=== PATIENT | female | born 1990 | race American Indian/Alaskan Native ===

== ENCOUNTER 2017-05-10 16:09 | Emergency (ER) | payer MEDICAID ==
[2017-05-10 16:21] VITALS: BP 124/79
--- NOTE | 2017-05-10 16:39 | Emergency Department Report ---
ED Female HPI - General Chief complaint: Urogenital-Female Stated complaint: 18WKS PREGN/PRESSURE sent by ob to check urine Time Seen by Provider: 05/10/17 16:32 Source: patient Mode of arrival: Ambulatory Limitations: No Limitations - History of Present Illness Complaint: other (pelvic pressure for 2 days. no vag bleed. no vag d/c. no pain. no contractions. ob told her if she was this worried to come here to ER to be sure she does not have uti. ) -: days(s) (2) Severity: mild Quality: other (pressure) Consistency: intermittent, other (worse at work) Improves with: none Worsens with: none Are you Now?: Yes (edc 11-27) Associated Symptoms: denies other symptoms. denies: vaginal discharge, vaginal bleeding, abdominal pain, nausea/vomiting, fever/chills, headaches, loss of appetite, dysuria, hematuria, rash, seizure, shortness of breath, syncope, weakness - Related Data Sexually active: Yes Allergies Allergy/AdvReac Type Severity Reaction Status Date / Time Penicillins AdvReac Rash Verified 05/10/17 16:15 ED Review of Systems ROS: Stated complaint: 18WKS PREGN/PRESSURE Other details as noted in HPI Comment: All other systems reviewed and negative Constitutional: no symptoms reported, see HPI. denies: chills, diaphoresis, fever, malaise, weakness Eyes: as per HPI. denies: eye pain ENT: as per HPI. denies: ear pain, throat pain Respiratory: no symptoms reported, see HPI. denies: cough, orthopnea Cardiovascular: as per HPI. denies: chest pain, palpitations, dyspnea on exertion, orthopnea Endocrine: no symptoms reported, see HPI. denies: excessive sweating, flushing Gastrointestinal: as per HPI, other (preg w interm pelvic pressure 18 w no vag bleed or dc. baby active. no contractions. has had obgyn care. ). denies : abdominal pain, nausea, vomiting, diarrhea, constipation, hematemesis, melena , hematochezia Genitourinary: as per HPI. denies: urgency, dysuria, frequency, hematuria, discharge, abnormal menses, dyspareunia Musculoskeletal: as per HPI. denies: back pain, joint swelling, arthralgia Skin: as per HPI. denies: rash, lesions, change in color, change in hair/nails , pruritus Neurological: as per HPI. denies: headache, weakness, numbness, paresthesias, confusion Psychiatric: as per HPI. denies: anxiety, depression, auditory hallucinations, visual hallucinations, homicidal thoughts Hematological/Lymphatic: as per HPI. denies: easy bleeding ED Past Medical Hx - Past Medical History Previous Medical History?: No - Surgical History Past Surgical History?: Yes Additional Surgical History: X 2. - Family History Family history: no significant - Social History Smoking Status: Never Smoker Substance Use Type: None ED Physical Exam - General Limitations: No Limitations General appearance: alert, in no apparent distress - Head Head exam: Present: atraumatic - Eye Eye exam: Present: normal appearance - ENT ENT exam: Present: normal exam, mucous membranes moist - Neck Neck exam: Present: normal inspection. Absent: tenderness, meningismus - Respiratory Respiratory exam: Present: normal lung sounds bilaterally. Absent: respiratory distress, wheezes, rales, rhonchi, stridor - Cardiovascular Cardiovascular Exam: Present: regular rate, normal rhythm. Absent: bradycardia , tachycardia, irregular rhythm - GI/Abdominal GI/Abdominal exam: Present: normal bowel sounds, other (no concern std; no dysuria or other uti s/s). Absent: soft (gravid), distended (gravid), tenderness, guarding, rebound, rigid, diminished bowel sounds, hyperactive bowel sounds, hypoactive bowel sounds, organomegaly, mass, bruit, pulsatile mass , hernia - Rectal Rectal exam: Present: normal inspection - External exam: Present: normal external exam. Absent: erythema, swelling, lesions, lacerations, ecchymosis, bleeding Speculum exam: Present: normal speculum exam. Absent: erythema, vaginal discharge (of preg), cervical discharge, vaginal bleeding, foreign body, tissue , laceration Bi-manual exam: Present: normal bi-manual exam, uterine enlargement (gravid fundus just below umbilicus. os closed. no tissue or bleeding. denies any spotting or dc. ). Absent: cervical motion tendernes, adnexal tenderness, adnexal mass, uterine tenderness - Expanded Exam Expanded Female exam: Absent: vaginal laceration, tissue present in vagina, herpetic lesions, vulvar erythema, vulvar tenderness, foreign body External exam: Present: normal Manual exam: Absent: station, dilation # CMs, effacement % Amniotic fluid: Absent: none Speculum exam: Present: cervical OS closed. Absent: vaginal bleeding, vaginal discharge - Extremities Exam Extremities exam: Present: normal inspection, full ROM, normal capillary refill. Absent: tenderness, pedal edema, joint swelling, calf tenderness - Back Exam Back exam: Present: normal inspection, full ROM. Absent: tenderness, CVA tenderness (R), CVA tenderness (L), muscle spasm, paraspinal tenderness, vertebral tenderness - Neurological Exam Neurological exam: Present: alert, altered, oriented X3, CN II-XII intact, normal gait, reflexes normal. Absent: motor sensory deficit - Psychiatric Psychiatric exam: Present: normal affect, normal mood - Skin Skin exam: Present: warm, dry, intact, normal color. Absent: rash ED Course Vital Signs 05/10/17 16:16 Temperature 98.3 F Pulse Rate 97 H Respiratory 17 Rate Blood Pressure 124/79 O2 Sat by Pulse 100 Oximetry - Reevaluation(s) Reevaluation #1: 05/10/17 to er p 2 d hx of pelvic pressure called ob and he told if she was worried to come her to be checked no vag bleed no vag dc no pain no contractions no fever ambulatory has had nurse obgyn care ua noted pelvic exam wnl os closed dc of preg FAST used hr 180 active fetus. discussed ligament pain w pt instructed to maintain pelvic rest and fu w obgyn in am ED Medical Decision Making - Medical Decision Making ua noted. uc sent fht 180 active fetus no vag bleed or dc no pain no contraction no pressure at present will see ob in am - Differential Diagnosis ro uti in preg- sent by ob Critical care attestation.: If time is entered above; I have spent that time in minutes in the direct care of this critically ill patient, excluding procedure time. ED Disposition Clinical Impression: IUP (intrauterine ), incidental, Round ligament pain Disposition: DC- TO HOME OR SELFCARE Is pt being admited?: No Does the pt Need Aspirin: No Condition: Stable Instructions: (ED) Additional Instructions: rest fluids pelvic rest follow up ob in am and make appnt this week Referrals: PRIMARY CARE, [Primary Care Provider] - 3-5 Days Time of Disposition: 17:43
[2017-05-10 16:50] LABS: Bilirubin,Urine NEG (Negative); Blood,Urine NEG (Negative); Ketones,Urine NEG (Negative); Leukocyte Esterase,Urine TR (Negative); Mucus,Urine FEW /HPF; Nitrite,Urine NEG (Negative); Protein,Urine <15 mg/dL mg/dL (Negative)
== END 2017-05-10 17:54 | disposition home or self-care (01) ==
LOC: ED 16:09
DX: O26.892 Other specified pregnancy related conditions, second trimester (principal); R10.2 Pelvic and perineal pain; Z3A.18 18 weeks gestation of pregnancy
CPT/HCPCS: 81001; 87086; 99284